=== PATIENT | male | born 1985 | race Caucasian/White ===

== ENCOUNTER 2021-02-16 13:54 | Emergency (ER) | payer OTHER ==
[~2021-02-16] VITALS: Ht 170.2 cm; Wt 90.9 kg
[2021-02-16 14:28] VITALS: BP 137/66
[2021-02-16] MEDS ORDERED: RIFA300 PO (14:30)
== END 2021-02-16 16:49 | disposition home or self-care (01) ==
LOC: EMS 13:57
DX: R76.11 Nonspecific reaction to tuberculin skin test without active tuberculosis (principal); E78.00 Pure hypercholesterolemia, unspecified; Z88.6 Allergy status to analgesic agent
CPT/HCPCS: 71045; 99283